=== PATIENT | female | born 1980 | race American Indian/Alaskan Native ===

== ENCOUNTER → 2017-09-12 | Outpatient (CLI) | payer OTHER ==
[~2017-09-12] MED LIST: CALCIUM WITH D31 CTB PO; IRON TABLETS325 MG PO; MULTI-VITAMIN W1 TA2 PO; PRILOSEC 20MG20 MG PO
== END ==
LOC: LIGHT 07:42
DX: Z01.89 Encounter for other specified special examinations (principal)

== ENCOUNTER → 2017-11-28 | Outpatient (CLI) | payer OTHER ==
[~2017-11-28] VITALS: Ht 170.2 cm; Wt 110.9 kg
[2017-11-28 13:44] VITALS: BP 104/60; PULSE 72
== END ==
LOC: LIGHT 09:28
DX: Z01.89 Encounter for other specified special examinations (principal)

== ENCOUNTER → 2017-12-26 | Outpatient (CLI) | payer OTHER ==
[~2017-12-26] VITALS: Ht 170.2 cm; Wt 108.4 kg
[2017-12-26 13:36] VITALS: BP 118/64; PULSE 84
== END ==
LOC: LIGHT 13:25
DX: Z98.84 Bariatric surgery status (principal); K21.9 Gastro-esophageal reflux disease without esophagitis; E66.01 Morbid (severe) obesity due to excess calories; Z68.36 Body mass index [BMI] 36.0-36.9, adult; Z71.3 Dietary counseling and surveillance
CPT/HCPCS: G0463

== ENCOUNTER 2019-09-21 07:12 | Day surgery (SDC) | payer OTHER ==
[~2019-09-21] VITALS: Ht 172.7 cm; Wt 110.7 kg
[2019-09-21] VITALS (7 sets, daily range): BP systolic 117–129; BP diastolic 54–74; PULSE 58–78; TEMP 97.3–97.8
[2019-09-21 08:21] LABS: MEAN CELL VOLUME 86 fl (80.0-100.0); MEAN CORPUSCULAR HEMOGLOBIN 30 pg (27.0-31.0); MEAN CORPUSCULAR HGB CONC 34 g/dl (33.0-37.0); PLATELET COUNT 242 K/mm3 (130-400); RED BLOOD COUNT 4.75 M/mm3 (4.10-5.30); REDCELL DISTRIBUTION WIDTH-CV 12.6 % (11.5-14.5)
[2019-09-21 08:30] LABS: ALBUMIN 4.3 gm/dL (3.5-5.0); BILIRUBIN,TOTAL 0.6 mg/dL (0.0-1.0); CALCIUM 9.8 mg/dL (8.4-10.2); CREATININE, serum 0.61 (0.52-1.25); POTASSIUM 4.1 mmol/L (3.4-5.0)
--- NOTE | 2019-09-21 09:11 | NUR ---
Initial visit; Patient and family thanked Facsimile Machine Operator for offering comfort and prayer prior to her surgical procedure.
[2019-09-21] MEDS ORDERED: NORCO 325 MG-51 TAB PO (10:57)
--- NOTE | 2019-09-21 11:40 | NUR ---
TO RM 7 PER CART FROM PACU. DROWSY, BUT ANSWERED QUESTIONS AND FELL BACK TO SLEEP. DRESSINGS OVER INCISION SITES CLEAN DRY INTACT. C/O NAUSEA AND FALLS BACK TO SLEEP. DENIES PAIN OR DISCOMFORT AT THIS TIME. MOTHER AND AT BEDSIDE. ENCOURAGED FAMILY TO LET PATIENT SLEEP.
--- NOTE | 2019-09-21 11:55 | NUR ---
RECEIVED ICE CHIPS AND TOOK A FEW BITES
--- NOTE | 2019-09-21 12:10 | NUR ---
O2 SAT 100% ON 2L PER NC ON ARRIVAL FROM PACU. CONTINUES TO SLEEP QUIETLY NO CHANGES OR SIGNS OF PAIN OR DISCOMFORT.
--- NOTE | 2019-09-21 12:40 | NUR ---
MOTHER SAID SHE TOOK A FEW MORE BITES OF ICE. CURRENTLY SLEEPING
--- NOTE | 2019-09-21 13:00 | NUR ---
PATIENT AND MOTHER SLEEPING
--- NOTE | 2019-09-21 13:15 | NUR ---
MORE AWAKE AND SAT UP. RECEIVED CRACKERS MOTHER AT BEDSIDE AND ASSISTING PATIENT TO EAT CRACKERS.
--- NOTE | 2019-09-21 13:50 | NUR ---
AMBULATED TO BATHROOM, MOTHER STAYED WITH WHILE IN BATHROOM. VOIDED AND AMBULATED BACK TO BED RECEIVED NORCO 5MG PO WITH SIP OF WATER. AND CHILDREN BACK AT BEDSIDE.
--- NOTE | 2019-09-21 14:10 | NUR ---
STATED PAIN 2/10 AND DENIES NAUSEA
--- NOTE | 2019-09-21 14:25 | NUR ---
RECEIVED DISCHARGE INSTRUCTIONS AND VERBALIZED UNDERSTANDING DISCONTINUED IV IN R AC AND IV R HAND.
--- NOTE | 2019-09-21 14:40 | NUR ---
DISCHARGED PER WC BY NURSING STAFF TO PRIVATE CAR IN CARE OF .
== END 2019-09-21 14:40 | disposition home or self-care (01) ==
LOC: SDCO 07:12
PROVIDERS: Surgery
DX: K80.12 Calculus of gallbladder with acute and chronic cholecystitis without obstruction (principal); F41.0 Panic disorder [episodic paroxysmal anxiety]; M17.0 Bilateral primary osteoarthritis of knee; Z83.3 Family history of diabetes mellitus
CPT/HCPCS: J0690; J1100; J1885; J2250; J2405; J2550; J2704; J3010

== ENCOUNTER → 2019-12-31 | Outpatient (CLI) | payer OTHER ==
[~2019-12-31] MED LIST changes: +NORCO 325 MG-51 TAB PO
== END ==
LOC: MC.RAD 07:50
DX: N64.89 Other specified disorders of breast (principal)
CPT/HCPCS: G0279